=== PATIENT | female | born 1970 | race Asian ===

== ENCOUNTER 2016-11-18 19:04 | Emergency (ER) | payer OTHER ==
[2016-11-18] MEDS ORDERED: DEXAMETHASONE 10 MG/ML VIAL PO STA (20:23)
[2016-11-18] MEDS ORDERED: CHERRY SYRUP 10 ML UDC PO ONE (20:37)
[2016-11-18] MEDS ORDERED: DEXAMETHASONE 10 MG/ML VIAL ONE (20:38)
[2016-11-18] MEDS ORDERED: KETOROLAC 60 MG/2 ML VIAL IM STA (20:54)
[2016-11-18] MEDS ORDERED: KETOROLAC 60 MG/2 ML VIAL ONE (20:55)
[2016-11-18] MEDS ORDERED: HYDROcod/ACET 5/325 Prepack 6 PO ONE ×2 (21:25→21:33)
== END 2016-11-18 21:39 | disposition home or self-care (01) ==
DX: M94.0 Chondrocostal junction syndrome [Tietze] (principal); K21.9 Gastro-esophageal reflux disease without esophagitis; F17.200 Nicotine dependence, unspecified, uncomplicated
CPT/HCPCS: 36415; 71020; 80053; 83690; 84484; 85025; 93005; 93010; 96372; 99283; 99284; A9270

== ENCOUNTER 2017-11-07 08:04 | Emergency (ER) | payer OTHER ==
[2017-11-07] MEDS ORDERED: diphenhydrAMINE INJ 50 MG/ML VIAL IVP STA (08:23)
[2017-11-07] MEDS ORDERED: KETOROLAC 60 MG/2 ML VIAL IVP STA (08:23)
[2017-11-07] MEDS ORDERED: SODIUM CHLORIDE 0.9% 1,000 ML IV ONE (08:23)
[2017-11-07] MEDS ORDERED: PROCHLORPERAZINE INJ 10 MG in SODIUM CHLORIDE 0.9% 50 ML IV ONE (08:24)
--- NOTE | 2017-11-07 08:28 | ED Physician Documentation ---
PD HPI HEADACHE - Stated complaint Stated Complaint: DUKES/NAUSEA VOMITING - Chief complaint Chief Complaint: Neuro - History obtained from History obtained from: Patient - History of Present Illness Timing - onset: Yesterday Timing - details: Still present Worst headache ever?: Worst headache ever? (No.) Location: Global Quality: Aching Associated symptoms: Nausea, Vomiting. No: Fever, Stiff neck, Weakness, Numbness Improved by: Dark room Worsened by: Light Similar symptoms before: Diagnosis (Reports history of migraines.) - Treatment prior to arrival Treatment prior to arrival: Tylenol without relief. - Additional information Additional information: The patient is a 46-year-old female who presents with left-sided headache that started yesterday and continues this morning. She reports associated vomiting and photosensitivity. She denies fever, abdominal pain, numbness or weakness. She has used Tylenol without relief. She has history of similar symptoms in the past, which she describes as migraines. Her last episode was about 1 week ago. Normally her headaches are brought on by bright sunlight. She had a massage yesterday, and reports that her headache became worse after the massage. Review of Systems Constitutional: denies: Fever Eyes: reports: Photophobia Ears: denies: Tinnitus/ringing Nose: denies: Congestion Throat: denies: Sore throat Cardiac: denies: Chest pain / pressure Respiratory: denies: Dyspnea, Cough GI: reports: Nausea, Vomiting. denies: Abdominal Pain, Diarrhea : denies: Dysuria Skin: denies: Rash Musculoskeletal: denies: Neck pain, Back pain Neurologic: reports: Headache. 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 - Present Medications Home Medications: Ambulatory Orders Medication Instructions Recorded Confirmed raNITIdine HCl [Ranitidine HCl] 1 mg PO BID 01/09/16 11/18/16 HYDROcod/ACETAM 5/325 [[place] 5/325] 1 - 2 ea PO Q6H PRN #15 tablet 11/18/16 Promethazine [Phenergan] 25 - 50 mg PO Q6H PRN #10 tab 11/07/17 - Allergies Allergies/Adverse Reactions: Allergies Allergy/AdvReac Type Severity Reaction Status Date / Time No Known Drug Allergies Allergy Verified 01/09/16 21:07 - Social History Does the pt smoke?: Yes Smoking Status: Current every day smoker Does the pt drink ETOH?: Yes Does the pt have substance abuse?: No - Immunizations Immunizations are current?: Yes - POLST Patient has POLST: No PD ED PE NORMAL - Vitals Vital signs reviewed: Yes (Normal) - General General: Alert and oriented X 3, Well developed/nourished - HEENT HEENT: Atraumatic, PERRL, EOMI, Ears normal, Pharynx benign, Other (Fundi with sharp disc margins.) - Neck Neck: Supple, no meningeal sign, No adenopathy, No JVD - Cardiac Cardiac: RRR, No murmur - Respiratory Respiratory: No respiratory distress, Clear bilaterally - Abdomen Abdomen: Soft, Non tender - Back Back: No CVA TTP - Derm Derm: No rash - Extremities Extremities: No edema, No calf tenderness / cord - Neuro Neuro: Alert and oriented X 3, No motor deficit, No sensory deficit, Normal speech Results - Vitals Vitals: Vital Signs - 24 hr 11/07/17 10:22 Heart Rate 65 Respiratory 16 Rate Blood Pressure 99/64 O2 Saturation 100 Oxygen O2 Source Room air PD MEDICAL DECISION MAKING - ED course Complexity details: re-evaluated patient, considered differential, d/w patient, d/w family ED course: The patient's presentation is significant for headache which may be caused by a migraine, but is more likely associated with cervical muscle tension. There is no clinical evidence to suggest intracranial hemorrhage, temporal arteritis, meningitis, or pseudotumor cerebri. Treatment in the emergency department included administration of normal saline 1 L IV, Compazine 10 mg IV, Benadryl 25 mg IV, and ketorolac 30 mg IV. Her symptoms resolved with the above treatment. I discussed with her and her symptomatic treatment, outpatient follow-up, as well as potentially worrisome signs or symptoms that should prompt reevaluation in the emergency department. Departure - Departure Disposition: 01 Home, Self Care Clinical Impression: Headache Qualifiers: Headache type: unspecified Headache chronicity pattern: acute headache Intractability: not intractable Qualified Code(s): R51 - Headache Condition: Stable Instructions: ED Cephalgia Unspecified Follow-Up: WALTER Chan [Provider Group] Prescriptions: Promethazine [Phenergan] 25 - 50 mg PO Q6H PRN #10 tab PRN Reason: Nausea / Vomiting Comments: Drink plenty of fluids. You can use Tylenol or ibuprofen if needed for recurrent headache. You can use Phenergan as prescribed if needed for nausea. Follow up with your primary physician within 2 weeks. Call to schedule an appointment. Return to the emergency department if you develop increasing headache, persistent vomiting, or otherwise worsening symptoms. Forms: Activity restrictions Discharge Date/Time: 11/07/17 10:35
[2017-11-07 10:29] VITALS: BP 99/64
== END 2017-11-07 10:35 | disposition home or self-care (01) ==
LOC: ED 08:04
DX: R51 Headache (principal); R11.2 Nausea with vomiting, unspecified; K21.9 Gastro-esophageal reflux disease without esophagitis; F17.200 Nicotine dependence, unspecified, uncomplicated
CPT/HCPCS: 96365; 96375; 99283; 99284; J1200; J7040

== ENCOUNTER 2019-04-18 11:33 | Emergency (ER) | payer OTHER ==
--- NOTE | 2019-04-18 12:29 | ED Physician Documentation ---
PD HPI OPHTHO - Stated complaint Stated Complaint: LT EYE BLEEDING - Chief complaint Chief Complaint: Heent - History obtained from History obtained from: Patient - History of Present Illness Timing - onset: How many days ago (5) Timing - duration: Days (5) Timing - details: Abrupt onset (she has had some itching eyes and watery c/w allergies and has been rubbing eyes some. noted broken blood vessel 5 days ago and this was improving, then noted another one today. Says also has some occasional bright spots left eye. No loss of vision.) Location: Left Quality / character: Itching Associated symptoms: Redness, Tearing. No: Discharge, FB sensation Contributing factors: Other (has some runny nose and watery eyes c/w allergies.). No: Exposed to conjunctivitis, Recent URI, Wears contacts Similar symptoms before: Has not had sx before Review of Systems Constitutional: denies: Fever, Chills Eyes: reports: Irritation. denies: Loss of vision, Photophobia, Discharge Nose: reports: Rhinorrhea / runny nose. 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 - Present Medications Home Medications: Ambulatory Orders Medication Instructions Recorded Confirmed raNITIdine HCl [Ranitidine HCl] 1 mg PO BID 01/09/16 11/18/16 HYDROcod/ACETAM 5/325 [[place] 5/325] 1 - 2 ea PO Q6H PRN #15 tablet 11/18/16 Promethazine [Phenergan] 25 - 50 mg PO Q6H PRN #10 tab 11/07/17 ZOLMitriptan [Zolmitriptan] 5 mg PO ONCE PRN #10 tablet 04/18/19 dexAMETHasone [Decadron] 4 mg PO DAILY #5 tablet 04/18/19 - Allergies Allergies/Adverse Reactions: Allergies Allergy/AdvReac Type Severity Reaction Status Date / Time No Known Drug Allergies Allergy Verified 04/18/19 11:48 - Social History Does the pt smoke?: Yes Smoking Status: Current every day smoker Does the pt drink ETOH?: Yes Does the pt have substance abuse?: No - Immunizations Immunizations are current?: Yes - POLST Patient has POLST: No PD ED PE NORMAL - Vitals Vital signs reviewed: Yes - General General: Alert and oriented X 3, No acute distress, Well developed/nourished - HEENT HEENT: PERRL, EOMI, Other (small subconjunctival hemorrhage left eye at 11 oclock position and at 4 oclock area (appears resolving there). Mild redness of both lower conjunctivae. ) - Neck Neck: Supple, no meningeal sign, No adenopathy - Cardiac Cardiac: RRR, No murmur - Respiratory Respiratory: Clear bilaterally - Derm Derm: Normal color, Warm and dry PD ED PE EXPANDED - Eyes Eyes: Anterior chambers clear, Normal fundi Results - Vitals Vitals: Vital Signs - 24 hr 04/18/19 04/18/19 11:42 13:16 Temperature 37.0 C 36.4 C L Heart Rate 70 56 L Respiratory 17 12 Rate Blood Pressure 123/85 H 112/64 O2 Saturation 99 99 Oxygen O2 Source Room air Departure - Departure Disposition: 01 Home, Self Care Clinical Impression: Subconjunctival hemorrhage of left eye Allergic conjunctivitis Qualifiers: Laterality: bilateral Qualified Code(s): H10.13 - Acute atopic conjunctivitis, bilateral Condition: Stable Record reviewed to determine appropriate education?: Yes Instructions: ED Allergic Conjunctivitis Prescriptions: dexAMETHasone [Decadron] 4 mg PO DAILY #5 tablet ZOLMitriptan [Zolmitriptan] 5 mg PO ONCE PRN #10 tablet PRN Reason: Migraine Comments: I think the bleeding on the surface of the eye relates to some irritation of the blood vessels in the conjunctivo-from your allergies. Likely the irritation and then some rubbing of the eyes because the blood vessels to pop open. There is no signs of more serious problem on the back chamber or such. I would use your panthenol antihistamine eyedrops 3 times a day and cetirizine oral antihistamine daily both for a week. Add Decadron steroid daily for 5 days to reduce the allergy symptoms. The small hemorrhages should decrease. Continue your other usual medicines. Discharge Date/Time: 04/18/19 13:18
[2019-04-18] MEDS ORDERED: CETIRIZINE 10 MG TABLET PO STA (13:00)
[2019-04-18] MEDS ORDERED: DEXAMETHASONE 10 MG/ML VIAL PO STA (13:00)
[2019-04-18] MEDS ORDERED: CHERRY SYRUP 10 ML UDC PO ONE (13:00)
[2019-04-18] MEDS ORDERED: diphenhydrAMINE 25 MG CAPSULE PO STA (13:01)
[2019-04-18 13:18] VITALS: BP 112/64
== END 2019-04-18 13:18 | disposition home or self-care (01) ==
LOC: ED 11:33
DX: H11.32 Conjunctival hemorrhage, left eye (principal); H10.13 Acute atopic conjunctivitis, bilateral; F17.200 Nicotine dependence, unspecified, uncomplicated
CPT/HCPCS: 99282; 99284; A9270

== ENCOUNTER 2020-11-01 11:59 | Emergency (ER) | payer OTHER ==
[2020-11-01] MEDS ORDERED: DEXAMETHASONE 10 MG/ML VIAL PO STA (12:34)
[2020-11-01] MEDS ORDERED: KETOROLAC 60 MG/2 ML VIAL IM STA (12:34)
[2020-11-01] MEDS ORDERED: CHERRY SYRUP 10 ML UDC PO ONE (12:34)
--- NOTE | 2020-11-01 12:37 | ED Physician Documentation ---
History of Present Illness - Stated complaint Stated Complaint: BACK PX - Chief complaint Chief Complaint: Back Pain - Additonal information Additional information: 49-year-old female presents emergency department for evaluation of 3 to 4 days of low back pain. She reports that she was caring for 12 packs of soda at once and noticed that her back was mildly sore afterwards. She thought that she was okay but the next morning when she woke up her back was sore. She decided to stay home from work and rest in bed all day with Salonpas medicated patches as well as a warm compress. She feels that since then she has had increased low back pain worse with movement or bending. She denies any fevers flank pain dysuria urgency or frequency. No saddle anesthesia. No history of cancer or injection drug use. No history of spinal surgery or instrumentation. Reports a history of gastritis and cannot take NSAID medication Review of Systems Constitutional: denies: Fever, Chills Eyes: reports: Reviewed and negative Ears: reports: Loss of hearing Nose: reports: Reviewed and negative Throat: reports: Reviewed and negative Cardiac: reports: Reviewed and negative Respiratory: reports: Reviewed and negative GI: reports: Reviewed and negative : reports: Reviewed and negative Skin: denies: Rash, Lesions Musculoskeletal: reports: Back pain Neurologic: denies: Generalized weakness, Focal weakness, Near syncope, Seizure, Headache, Head injury, LOC PD PAST MEDICAL HISTORY - Past Medical History Past Medical History: Yes Cardiovascular: None Respiratory: None Neuro: None Endocrine/Autoimmune: None GI: 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: Other Psych: None Musculoskeletal: None Derm: None - Past Surgical History 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 - Present Medications Home Medications: Ambulatory Orders Medication Instructions Recorded Confirmed raNITIdine HCL [Ranitidine HCl] 1 mg PO BID 01/09/16 11/18/16 HYDROcod/ACETAM 5/325 [[place] 5/325] 1 - 2 ea PO Q6H PRN #15 tablet 11/18/16 Promethazine [Phenergan] 25 - 50 mg PO Q6H PRN #10 tab 11/07/17 ZOLMitriptan [Zolmitriptan] 5 mg PO ONCE PRN #10 tablet 04/18/19 dexAMETHasone [Decadron] 4 mg PO DAILY #5 tablet 04/18/19 Acetaminophen [Tylenol] 650 mg PO Q6H PRN #30 tab 11/01/20 Methocarbamol [Robaxin-750] 750 mg PO TID PRN #30 tablet 11/01/20 - Allergies Allergies/Adverse Reactions: Allergies Allergy/AdvReac Type Severity Reaction Status Date / Time No Known Drug Allergies Allergy Verified 11/01/20 12:11 - Social History Does the pt smoke?: Yes Smoking Status: Current every day smoker Does the pt drink ETOH?: Yes Does the pt have substance abuse?: No - Immunizations Immunizations are current?: Yes - POLST Patient has POLST: No PD ED PE EXPANDED - General General: Alert, No acute distress, Well developed/nourished - Neck Neck: Supple w/out meningeal sx. No: Adenopathy - Cardiac Cardiac: Regular Rate, Regular Rhythm, Radial strong equal, Cap refill < 2 sec. No: Murmur Present - Respiratory Respiratory: Clear to ausultation marv. No: Distress - Abdomen Abdomen: No: Tender to palpation - Back Back: Soft tissue tenderness, Limited ROM, Other (reduced forward flexion, un assited though antalgic gait. Bilateral paraspinous TTP. Able to walk on heels and toes equally). No: Vertebral tenderness, Straight leg raise + R, Straight leg raise + L, CVA TTP right, CVA TTP left - Extremities Extremities: Normal. No: Deformity, Tenderness, Pedal edema bilateral - Neuro Neuro: Alert and Oriented X 3, CNII-XII intact - GCS Eye Opening: Spontaneous Motor: Obeys Commands Verbal: Oriented Total: 15 Results - Vitals Vitals: Vital Signs - 24 hr 11/01/20 12:01 Temperature 36.8 C Heart Rate 69 Respiratory 17 Rate Blood Pressure 108/77 O2 Saturation 98 Oxygen O2 Source Room air PD MEDICAL DECISION MAKING - ED course Complexity details: considered differential, d/w patient ED course: This is a well-appearing 49-year-old female that presents emergency department with 3 to 4 days of low back pain after carrying very heavy cases of soda. Are no red flags on exam. No midline spinous process tenderness but there is tenderness along the bilateral lower lumbar paraspinous muscles. I suspect she has low back strain. Patient was given injection of Toradol here in the emergency department and will be given a one-time dose of Decadron. Will recommend a limited course of muscle relaxer for use at home as well as Tylenol. Patient is to follow-up with her primary care provider for reevaluation in the next 2 weeks. If not markedly improving may benefit from referral to physical therapy. Emergent return precautions discussed. Departure - Departure Disposition: 01 Home, Self Care Clinical Impression: Low back strain Qualifiers: Encounter type: initial encounter Qualified Code(s): S39.012A - Strain of muscle, fascia and tendon of lower back, initial encounter Condition: Stable Record reviewed to determine appropriate education?: Yes Instructions: ED Sprain Strain Lumbar Follow-Up: NISHANT ANGELES ARNP [Primary Care Provider] - Prescriptions: Methocarbamol [Robaxin-750] 750 mg PO TID PRN #30 tablet PRN Reason: Spasms Acetaminophen [Tylenol] 650 mg PO Q6H PRN #30 tab PRN Reason: Pain Comments: As we discussed I suspect that you sprained your low back carrying the heavy cases of soda. Today in the emergency department I have given you a one-time dose of an oral steroid that should help with pain and inflammation over the next 24 to 48 hours. Would like you to take the Tylenol with food 2-3 times a day as well as use the muscle relaxer sparingly. As we discussed light gentle stretching may help. Please schedule appoint with your fracture primary doctor for follow-up in the next 2 to 3 weeks. If symptoms not markedly improving you may benefit from referral to physical therapy or other evaluation.
[2020-11-01 13:30] VITALS: BP 114/51
== END 2020-11-01 13:07 | disposition home or self-care (01) ==
LOC: ED 11:59
DX: S39.012A Strain of muscle, fascia and tendon of lower back, initial encounter (principal); X50.0XXA Overexertion from strenuous movement or load, initial encounter; F17.200 Nicotine dependence, unspecified, uncomplicated
CPT/HCPCS: 96372; 99283; 99284; A9270

== ENCOUNTER 2021-03-30 09:02 | Outpatient (CLI) | payer OTHER | END 2021-03-30 09:03 | disposition critical access hospital (66) | LOC: EMS 09:02 | DX: R07.9 Chest pain, unspecified (principal); M25.512 Pain in left shoulder; M54.2 Cervicalgia; M54.9 Dorsalgia, unspecified; R06.4 Hyperventilation | CPT/HCPCS: A0425; A0427 ==

== ENCOUNTER 2021-03-30 09:29 | Emergency (ER) | payer OTHER ==
[2021-03-30] MEDS ORDERED: NITROGLYCERIN SL 0.4 MG TABLET SL ONE (09:48)
[2021-03-30] MEDS ORDERED: MORPHINE 2 MG/ML CARPUJECT IVP STA (10:07)
[2021-03-30] MEDS ORDERED: KETOROLAC 15 MG/ML VIAL IVP STA (10:08)
--- NOTE | 2021-03-30 10:09 | ED Physician Documentation ---
PD HPI CHEST PAIN - Stated complaint Stated Complaint: CP - Chief complaint Chief Complaint: Cardiac - History obtained from History obtained from: Patient, Family - History of Present Illness Timing - onset: Last night Timing - onset during: Rest Timing - duration: Hours (10) Timing - details: Abrupt onset, Still present, Waxing and waning Quality: Aching, Pain Location: Left chest (onset of left shoulder pain last evening and is in left pectoral chest this morning. Hurts with movement. Some pain with breathing.) Radiation: Left upper extremity (posterior shoulder.) Worsened by: Inspiration, Movement, Position (lifting arm up at shoulder). No: Exertion Associated symptoms: No: Shortness of air, Nausea, Vomiting, Cough Similar symptoms before: Has not had sx before Recently seen: Not recently seen Review of Systems Constitutional: denies: Fever, Chills Nose: denies: Rhinorrhea / runny nose, Congestion Throat: denies: Sore throat Cardiac: reports: Chest pain / pressure. denies: Palpitations, Pedal edema, Calf pain Respiratory: reports: Dyspnea. 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 - Present Medications Home Medications: Ambulatory Orders Medication Instructions Recorded Confirmed ZOLMitriptan [Zolmitriptan] 5 mg PO ONCE PRN #10 tablet 04/18/19 03/30/21 HYDROcod/ACETAM 5/325 [[place] 5/325] 1 ea PO Q6H PRN #12 tablet 03/30/21 Naproxen [Naprosyn] 500 mg PO BID #30 tablet 03/30/21 - Allergies Allergies/Adverse Reactions: Allergies Allergy/AdvReac Type Severity Reaction Status Date / Time No Known Drug Allergies Allergy Verified 03/30/21 10:00 - Social History Does the pt smoke?: Yes Smoking Status: Current every day smoker Does the pt drink ETOH?: Yes Does the pt have substance abuse?: No - Immunizations Immunizations are current?: Yes - POLST Patient has POLST: No PD ED PE NORMAL - Vitals Vital signs reviewed: Yes - General General: Alert and oriented X 3, No acute distress, Well developed/nourished - Neck Neck: Supple, no meningeal sign, No adenopathy - Cardiac Cardiac: RRR, No murmur - Respiratory Respiratory: Clear bilaterally, Other (some chestwall tenderness in left pectoral area. ) - Abdomen Abdomen: Soft, Non tender - Back Back: No CVA TTP - Derm Derm: Normal color, Warm and dry - Extremities Extremities: No edema, No calf tenderness / cord - Neuro Neuro: Alert and oriented X 3, No motor deficit, Normal speech Results - Vitals Vitals: Oxygen O2 Source Room air - EKG (time done) 09:32 Rate: Rate (enter#) (60) Rhythm: NSR [place]: Normal Intervals: Normal [place] QRS: Normal Ischemia: Normal ST segments. No: ST elevation c/w ischemia, ST depression - Labs Labs: Laboratory Tests 03/30/21 03/30/21 03/30/21 09:40 09:40 09:40 WBC 4.6 L RBC 4.94 Hgb 15.4 Hct 46.3 MCV 93.7 MCH 31.2 H MCHC 33.3 RDW 11.6 L Plt Count 247 MPV 9.3 Neut # (Auto) 1.9 Lymph # (Auto) 2.1 Ward # (Auto) 0.5 Eos # (Auto) 0.1 Baso # (Auto) 0.1 Absolute Nucleated RBC 0.00 Nucleated RBC % 0.0 D-Dimer Sodium 140 Potassium 4.0 Chloride 107 Carbon Dioxide 25 Anion Gap 8.0 BUN 11 Creatinine 0.9 Estimated GFR (MDRD) 66 L Glucose 105 H Calcium 8.9 Total Bilirubin 0.6 AST 36 ALT 49 Alkaline Phosphatase 47 Troponin I High Sens B-Natriuretic Peptide 23 Total Protein 7.4 Albumin 4.2 Globulin 3.2 Albumin/Globulin Ratio 1.3 Lipase 33 03/30/21 03/30/21 09:40 10:19 WBC RBC Hgb Hct MCV MCH MCHC RDW Plt Count MPV Neut # (Auto) Lymph # (Auto) Ward # (Auto) Eos # (Auto) Baso # (Auto) Absolute Nucleated RBC Nucleated RBC % D-Dimer 202.5 Sodium Potassium Chloride Carbon Dioxide Anion Gap BUN Creatinine Estimated GFR (MDRD) Glucose Calcium Total Bilirubin AST ALT Alkaline Phosphatase Troponin I High Sens 2.7 B-Natriuretic Peptide Total Protein Albumin Globulin Albumin/Globulin Ratio Lipase - Rads (name of study) chest xray Radiology: Prelim report reviewed (no acute process), See rad report PD MEDICAL DECISION MAKING - ED course Complexity details: considered differential, d/w patient Departure - Departure Disposition: 01 Home, Self Care Clinical Impression: Left-sided chest wall pain Condition: Stable Record reviewed to determine appropriate education?: Yes Instructions: ED Strain Chest Wall Prescriptions: Naproxen [Naprosyn] 500 mg PO BID #30 tablet HYDROcod/ACETAM 5/325 [[place] 5/325] 1 ea PO Q6H PRN #12 tablet PRN Reason: Pain Comments: Your chest x-ray, EKG, blood test do not show any more significant or serious cause for your chest pain. It seems musculoskeletal in nature. We will treat this with anti-inflammatories as directed. Add Tylenol every 4-6 hours if needed for pain or hydrocodone for worse pain short term. Follow-up with your primary care if not fully improved over the next several days to a week. Return if worsening or other symptoms develop. I am prescribing a short course of narcotic pain medication for you. These are potentially dangerous and addictive medications that should be used carefully. These medications may constipate you. Take an [id number] stool softener such as docusate twice daily with plenty of water while taking these medications. If you go 24 hours without a bowel movement, take [id number] MiraLAX, per package instructions. Do not drink or drive while taking these medications. If you received narcotic or sedating medications while in the emergency department do not drive for 24 hours. Store this medication in a safe, secure place and out of reach of children. It is a violation of federal law to give or sell this medication to another person or to use in a manner other than prescribed. The ED will not refill narcotic prescriptions, including prescriptions lost or stolen. You can dispose of unwanted medications at the [facility]'s office or at several pharmacies such as [facility]. Discharge Date/Time: 03/30/21 12:57
[2021-03-30 10:15] LABS: BASOPHILS # (AUTO) 0.1 10^3/uL (0.0-0.1); BASOPHILS % (AUTO) 1.5 %; EOSINOPHILS # (AUTO) 0.1 10^3/uL (0.0-0.7); EOSINOPHILS % (AUTO) 1.3 %; HCT - HEMATOCRIT 46.3 % (37.0-47.0); HGB - HEMOGLOBIN 15.4 g/dL (12.0-16.0); LYMPHOCYTES # (AUTO) 2.1 10^3/uL (1.5-3.5); LYMPHOCYTES % (AUTO) 45.1 %; MEAN CORPUSCULAR HEMOGLOBIN 31.2 pg (27.0-31.0); MEAN CORPUSCULAR HGB CONC 33.3 g/dL (32.0-36.0); MEAN CORPUSCULAR VOLUME 93.7 fL (81.0-99.0); MEAN PLATELET VOLUME 9.3 fL (7.9-10.8); MONOCYTES # (AUTO) 0.5 10^3/uL (0.0-1.0); NEUTROPHILS # (AUTO) 1.9 10^3/uL (1.5-6.6); NEUTROPHILS % (AUTO) 40.6 %; PLT - PLATELET COUNT 247 10^3/uL (130-450); RED BLOOD COUNT 4.94 10^6/uL (4.20-5.40); RED CELL DISTRIBUTION WIDTH 11.6 % (12.0-15.0); WHITE BLOOD COUNT 4.6 x10^3/uL (4.8-10.8)
[2021-03-30 10:36] LABS: ALBUMIN 4.2 g/dL (3.2-5.5); ALBUMIN/GLOBULIN RATIO 1.3 (1.0-2.2); BILIRUBIN,TOTAL 0.6 mg/dL (0.2-1.0); CALCIUM 8.9 mg/dL (8.5-10.3); CREATININE 0.9 mg/dL (0.4-1.0); TOTAL PROTEIN 7.4 g/dL (6.7-8.2)
--- NOTE | 2021-03-30 10:36 | XRAY Report ---
PROCEDURE: Chest 1 View X-Ray INDICATIONS: Chest Pain TECHNIQUE: One view of the chest was acquired. COMPARISON: Chest x-ray 11/18/2016 FINDINGS: Surgical changes and devices: None. Lungs and pleura: No pleural effusions or pneumothorax. Lungs are clear. Mediastinum: Mediastinal contours appear normal. Heart size is normal. Bones and chest wall: No suspicious bony lesions. Overlying soft tissues appear unremarkable. IMPRESSION: No acute pulmonary process. Reviewed by: Merlene Negrete MD on 03/30/2021 10:35 AM PDT Approved by: Merlene Negrete MD on 03/30/2021 10:35 AM PDT Station ID: [id number]
[2021-03-30 15:15] VITALS: BP 101/60
== END 2021-03-30 12:57 | disposition home or self-care (01) ==
LOC: EDUNIT# → ED 09:29
DX: R07.89 Other chest pain (principal); F17.200 Nicotine dependence, unspecified, uncomplicated
CPT/HCPCS: 36415; 71045; 80053; 83690; 83880; 84484; 85025; 85379; 93005; 96374; 96375; 99284; A9270

== ENCOUNTER 2023-09-30 09:59 | Emergency (ER) | payer OTHER ==
[2023-09-30 10:23] LABS: BASOPHILS # (AUTO) 0.1 10^3/uL (0.0-0.1); BASOPHILS % (AUTO) 0.9 %; EOSINOPHILS % (AUTO) 0.5 %; HCT - HEMATOCRIT 49.5 % (37.0-47.0); LYMPHOCYTES # (AUTO) 1.9 10^3/uL (1.5-3.5); LYMPHOCYTES % (AUTO) 34.9 %; MEAN CORPUSCULAR HEMOGLOBIN 30.3 pg (27.0-31.0); MEAN CORPUSCULAR HGB CONC 32.3 g/dL (32.0-36.0); MEAN CORPUSCULAR VOLUME 93.8 fL (81.0-99.0); MEAN PLATELET VOLUME 9.2 fL (7.9-10.8); MONOCYTES # (AUTO) 0.4 10^3/uL (0.0-1.0); MONOCYTES % (AUTO) 7.3 %; NEUTROPHILS # (AUTO) 3.1 10^3/uL (1.5-6.6); NEUTROPHILS % (AUTO) 55.7 %; PLT - PLATELET COUNT 244 10^3/uL (130-450); RED BLOOD COUNT 5.28 10^6/uL (4.20-5.40); RED CELL DISTRIBUTION WIDTH 11.4 % (12.0-15.0); WHITE BLOOD COUNT 5.5 x10^3/uL (4.8-10.8)
--- NOTE | 2023-09-30 10:35 | ED Physician Documentation ---
PD HPI CHEST PAIN - Stated complaint Stated Complaint: CHEST PX,SOA, LT SHOULDER/ARM PX,CHILLS - Chief complaint Chief Complaint: Cardiac - History obtained from History obtained from: Patient, Family - History of Present Illness Timing - onset: Yesterday Timing - onset during: Rest (just working at [employer] without strenuous activity.), Light activity. No: Exertion Timing - duration: Days (2) Timing - details: Gradual onset, Still present Quality: Aching, Sharp Location: Left chest (parasternal and pectoral area, with tenderness of chest to palpation and pain locally with movement of shoulder and deep breathing.) Radiation: Left upper extremity (anterior shoulder area.) Improved by: Rest Worsened by: Inspiration, Movement, Palpation Associated symptoms: Shortness of air. No: Nausea, Vomiting, Feeling faint / dizzy Similar symptoms before: Has not had sx before Review of Systems Constitutional: denies: Fever, Chills Nose: denies: Rhinorrhea / runny nose, Congestion Throat: denies: Sore throat Respiratory: denies: Cough GI: denies: Abdominal Pain, Nausea, Vomiting Skin: denies: Rash, Lesions Musculoskeletal: reports: Joint pain (she describes multiple large joints hurting variably over the past months variably without redness/swelling.). 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 RESOURCES ADMIN: None : None HEENT: Other Psych: None Musculoskeletal: None Derm: None - Past Surgical History Past Surgical History: Yes /HUMAN RESOURCES ADMIN: Other - Present Medications Home Medications: Ambulatory Orders Medication Instructions Recorded Confirmed ZOLMitriptan [Zolmitriptan] 5 mg PO ONCE PRN #10 tablet 04/18/19 09/30/23 Famotidine [Acid-Pep] 20 mg PO DAILY PRN 09/30/23 09/30/23 - Allergies Allergies/Adverse Reactions: Allergies Allergy/AdvReac Type Severity Reaction Status Date / Time No Known Drug Allergies Allergy Verified 09/30/23 10:06 - Social History Does the pt smoke?: Yes Smoking Status: Current every day smoker Does the pt drink ETOH?: Yes Does the pt have substance abuse?: No - Immunizations Immunizations are current?: Yes - POLST Patient has POLST: No PD ED PE NORMAL - Vitals Vital signs reviewed: Yes - General General: Alert and oriented X 3, No acute distress, Well developed/nourished - Neck Neck: Supple, no meningeal sign, No adenopathy - Cardiac Cardiac: RRR, No murmur - Respiratory Respiratory: No respiratory distress, Clear bilaterally, Other (definite chest wall tenderness left lateral parasternal area and medial pectoral without redness, sores, rash. Tender to anterior axillary area but not around toward the back. ) - Abdomen Abdomen: Soft, Non tender - Derm Derm: Normal color, Warm and dry - Extremities Extremities: Other (no redness, warmth, swelling of major joints. ) Results - Vitals Vitals: Oxygen O2 Source Room air - EKG (time done) 10:15 EKG releavant findings:: EKG personally interpreted by author of this note. Relevant findings are: Rate: Rate (enter#) (57) Rhythm: NSR [place]: Normal Intervals: Normal [place] QRS: Normal Ischemia: Normal ST segments. No: ST elevation c/w ischemia, ST elevation c/w repol - Labs Labs: Laboratory Tests 09/30/23 09/30/23 09/30/23 10:15 10:15 10:15 WBC 5.5 RBC 5.28 Hgb 16.0 Hct 49.5 H MCV 93.8 MCH 30.3 MCHC 32.3 RDW 11.4 L Plt Count 244 MPV 9.2 Neut # (Auto) 3.1 Lymph # (Auto) 1.9 Hale # (Auto) 0.4 Eos # (Auto) 0.0 Baso # (Auto) 0.1 Absolute Nucleated RBC 0.00 Nucleated RBC % 0.0 ESR 3 Sodium 139 Potassium 4.1 Chloride 106 Carbon Dioxide 26 Anion Gap 7.0 BUN 11 Creatinine 0.9 Estimated GFR (MDRD) 66 L Glucose 133 H Calcium 9.6 Total Bilirubin 0.4 AST 39 ALT 62 H Alkaline Phosphatase 85 Troponin I High Sens 12.0 Total Protein 7.9 Albumin 4.9 Globulin 3.0 Albumin/Globulin Ratio 1.6 Lipase 32 Rheumatoid Factor Double Strand DNA Ab 09/30/23 09/30/23 10:15 10:15 WBC RBC Hgb Hct MCV MCH MCHC RDW Plt Count MPV Neut # (Auto) Lymph # (Auto) Hale # (Auto) Eos # (Auto) Baso # (Auto) Absolute Nucleated RBC Nucleated RBC % ESR Sodium Potassium Chloride Carbon Dioxide Anion Gap BUN Creatinine Estimated GFR (MDRD) Glucose Calcium Total Bilirubin AST ALT Alkaline Phosphatase Troponin I High Sens Total Protein Albumin Globulin Albumin/Globulin Ratio Lipase Rheumatoid Factor NEGATIVE Double Strand DNA Ab <1 - Rads (name of study) chest xray Relevant Findings:: Prelim report reviewed, EMP independent interpretation of test PD Medical Decision Making - ED course Complexity details: reviewed results (Negative ECG, CXR and trop. No signs of acute cardiopulmonary cuase. describes multiple joint pains intermittently over past months. Eval with ESR and rheum tests for screening. Could be common cause autimmune with arthralgias and now costochondral pain. ), considered differential (chest pain with dyspnea. No URI symprtoms No exertioanl symptoms recent. No rash. no injury. Negative risk by PERC. Has distinct chestwall tenderness. ), d/w patient Departure - Departure Disposition: 01 Home, Self Care Clinical Impression: Chest pain, Acute chest wall pain, Polyarthralgia Condition: Stable Record reviewed to determine appropriate education?: Yes Instructions: ED Chest Pain Costochondritis Comments: Your EKG, chest x-ray, blood tests are normal without any signs of heart attack, heart failure, pneumonia, fluid in the lungs. You do have tenderness on the chest wall and hurting with movement and breathing so it sounds like musculoskeletal chest pain. Certainly avoid ibuprofen if that bothers your stomach etc. We did give a dose of some anti-inflammatory here and hopefully that will help decrease some of the symptoms. Continue with Tylenol 500 to 650 mg 4 times daily for pain over the next several days to week or so until this resolves. Follow-up with your primary care if not resolving well and improving well and resolved over the next 4 to 5 days. I did add some blood test that would look for some autoimmune type arthritis is since he describes some pains in your joints at times as well. Have your primary care follow-up on these test results. Otherwise continue usual medications. Watch for other symptoms to develop over the next couple of days such as fevers, coughing, flulike symptoms, skin rash or other abnormalities. If some of the symptoms develop, it may suggest another cause that was not yet evident. Forms: PCP List Discharge Date/Time: 09/30/23 12:07
[2023-09-30 10:44] LABS: ALBUMIN 4.9 g/dL (3.2-5.5); ALBUMIN/GLOBULIN RATIO 1.6 (1.0-2.2); BILIRUBIN,TOTAL 0.4 mg/dL (0.2-1.0); CALCIUM 9.6 mg/dL (8.5-10.3); CREATININE 0.9 mg/dL (0.6-1.3); POTASSIUM 4.1 mmol/L (3.5-4.5); TOTAL PROTEIN 7.9 g/dL (6.4-8.9)
--- NOTE | 2023-09-30 10:48 | XRAY Report ---
PROCEDURE: Chest 1V INDICATIONS: Chest pain TECHNIQUE: One view of the chest was acquired. COMPARISON: None. FINDINGS: Surgical changes and devices: None. Lungs and pleura: No pleural effusions or pneumothorax. Lungs are clear. Mediastinum: Mediastinal contours appear normal. Heart size is normal. Bones and chest wall: No suspicious bony lesions. Overlying soft tissues appear unremarkable. IMPRESSION: No acute cardiopulmonary process. Reviewed by: Karen Flannery MD on 09/30/2023 10:[address] [facility] Approved by: Karen Flannery MD on 09/30/2023 10:[address] [facility] Station ID: [id number]
[2023-09-30] MEDS: ACETAMINOPHEN 325 MG TABLET PO STA (11:19)
[2023-09-30] MEDS: DEXAMETHASONE 10 MG/ML VIAL IVP STA (11:19)
[2023-09-30] MEDS: KETOROLAC 15 MG/ML VIAL IVP STA (11:20)
[2023-09-30 12:13] VITALS: BP 112/74; O2SAT 100
[2023-09-30 13:28] LABS: RHEUMATOID FACTOR NEGATIVE (Negative)
== END 2023-09-30 12:07 | disposition home or self-care (01) ==
LOC: ED 09:59
DX: R07.89 Other chest pain (principal); M25.50 Pain in unspecified joint; F17.200 Nicotine dependence, unspecified, uncomplicated
CPT/HCPCS: 36415; 71045; 80053; 83690; 84484; 85025; 85651; 86225; 86430; 93005; 96374; 96375; 99284; A9270

== ENCOUNTER 2023-10-01 10:15 | Outpatient (CLI) | payer OTHER ==
--- NOTE | 2023-10-01 15:49 | XRAY Report ---
PROCEDURE: Shoulder 2+V LT INDICATIONS: LEFT SIDED SHOULDER PAIN TECHNIQUE: 3 views of the shoulder were acquired. COMPARISON: None. FINDINGS: Bones: No fractures or dislocations. No suspicious bony lesions. Visualized ribs appear intact. Minimal acromioclavicular degenerative narrowing. Soft tissues: No suspicious soft tissue calcifications. The visualized lungs are within normal limi ts. IMPRESSION: No acute bony abnormality. Reviewed by: Merlene Negrete MD on 10/01/2023 3:48 PM PST Approved by: Merlene Negrete MD on 10/01/2023 3:48 PM PST Station ID: [id number]
== END 2023-10-01 10:30 | disposition home or self-care (01) ==
LOC: DI.N 10:15
PROVIDERS: ATTEND Family Medicine
DX: M25.512 Pain in left shoulder (principal)

== ENCOUNTER 2023-11-12 08:00 | Outpatient (CLI) | payer OTHER ==
--- NOTE | 2023-11-12 15:56 | XRAY Report ---
PROCEDURE: Shoulder 1 View LT INDICATIONS: LEFT SHOULDER PAIN TECHNIQUE: 1 views of the shoulder were acquired. COMPARISON: X-ray shoulder 11/12/2023, 10/01/2023 FINDINGS: Bones: No fractures or dislocations. No suspicious bony lesions. Visualized ribs appear intact. Soft tissues: No suspicious soft tissue calcifications. The visualized lungs are within normal limi ts. IMPRESSION: Stable interval exam demonstrating no visualized fracture. No outlet narrowing. Reviewed by: Merlene Negrete MD on 11/12/2023 3:55 PM PDT Approved by: Merlene Negrete MD on 11/12/2023 3:55 PM PDT Station ID: [id number]
== END 2023-11-12 23:59 | disposition home or self-care (01) ==
LOC: DI.WOS 08:00
PROVIDERS: ATTEND Physician Assistant Surgical
DX: M25.512 Pain in left shoulder (principal)

== ENCOUNTER 2023-11-30 09:16 | Outpatient (CLI) | payer OTHER ==
[2023-11-30 18:56] LABS: ESTIMATED AVERAGE GLUCOSE 154 mg/dL (70-100)
[2023-11-30 19:14] LABS: THYROID STIMULATING HORMONE 0.66 uIU/mL (0.34-5.60)
[2023-11-30 19:17] LABS: ALBUMIN 4.2 g/dL (3.2-5.5); ALBUMIN/GLOBULIN RATIO 1.5 (1.0-2.2); ALKALINE PHOSPHATASE 73 IU/L (42-121); ALT ALANINE AMINOTRANSFERASE 64 IU/L (10-60); AST ASPARTATE AMINOTRANSFERASE 41 IU/L (10-42); BILIRUBIN,TOTAL 0.6 mg/dL (0.2-1.0); BUN - BLOOD UREA NITROGEN 11 mg/dL (6-20); CALCIUM 9.6 mg/dL (8.5-10.3); CARBON DIOXIDE - CO2 26 mmol/L (21-32); CHLORIDE 108 mmol/L (101-111); CHOL/HDL RATIO 3.2 (<4.4); CHOLESTEROL 184 mg/dL; CREATININE 0.9 mg/dL (0.6-1.3); GFR - MDRD 66 (>89); GLUCOSE 128 mg/dL (74-104); HDL CHOLESTEROL 57 mg/dL; LDL CHOLESTEROL,CALCULATED 94 mg/dL; LDL/HDL RATIO 1.6 (<4.4); POTASSIUM 4.5 mmol/L (3.5-4.5); SODIUM 139 mmol/L (135-145); TRIGLYCERIDES 163 mg/dL (48-352); VLDL CHOLESTEROL 33 mg/dL
== END 2023-11-30 09:17 | disposition home or self-care (01) ==
LOC: LAB.N 09:16
PROVIDERS: ATTEND Family Medicine
DX: K21.9 Gastro-esophageal reflux disease without esophagitis (principal); E66.3 Overweight; G43.009 Migraine without aura, not intractable, without status migrainosus
CPT/HCPCS: 36415; 80053; 80061; 83036; 83721; 84443

== ENCOUNTER 2024-05-03 07:56 | Emergency (ER) | payer OTHER ==
[2024-05-03 08:05] VITALS: BP 127/55; O2SAT 100
--- NOTE | 2024-05-03 08:10 | ED Physician Documentation ---
PD HPI UPPER EXT INJURY - Stated complaint Stated Complaint: LT FINGER LAC - Chief complaint Chief Complaint: Laceration - History obtained from History obtained from: Patient - History of Present Illness Location: Left, Finger (ring finger tip lac with sharp knife at home during food prep. Occurred last night and clenased/bandage. 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 : None HEENT: Other Psych: None Musculoskeletal: None Derm: None - Past Surgical History Past Surgical History: Yes /DRAFTER MARINE: Other - Present Medications Home Medications: Ambulatory Orders Medication Instructions Recorded Confirmed ZOLMitriptan [Zolmitriptan] 5 mg PO ONCE PRN #10 tablet 04/18/19 09/30/23 Famotidine [Acid-Pep] 20 mg PO DAILY PRN 09/30/23 09/30/23 - Allergies Allergies/Adverse Reactions: Allergies Allergy/AdvReac Type Severity Reaction Status Date / Time No Known Drug Allergies Allergy Verified 05/03/24 08:00 - Social History Does the pt smoke?: Yes Smoking Status: Current every day smoker Does the pt drink ETOH?: Yes Does the pt have substance abuse?: No - Immunizations Immunizations are current?: Yes - POLST Patient has POLST: No PD ED PE NORMAL - Vitals Vital signs reviewed: Yes - General General: Alert and oriented X 3, Well developed/nourished - Derm Derm: Normal color, Warm and dry - Extremities Extremities: Other (finger tip left ring finger with flap lac palmar to nailbed. It is still attached with about 90 degrees of the circumference. There is subcut tissue still on underside of flap with faint bleeding, about 1.5 cm diameter. Oozing blood from base of wound.) - Neuro Neuro: No motor deficit, No sensory deficit Results - Vitals Vitals: Oxygen O2 Source Room air Procedures - Laceration (location) left ring finger tip Length in cm: 1.5 Wound type: Flap, Into subcut fat, Clean Neurovascular status: Sensory intact, Motor intact Anesthesia: Lidocaine 1% Wound preparation: Wound explored, To the base Skin layer closure: Nylon, Interrupted, Size #-0 - enter number (4) Other: Patient tolerated well (painful injecting the lido.), No complications, Neurovascular intact, Dressing applied, Tetanus UTD PD Medical Decision Making - ED course Complexity details: considered differential (capillary/small skin vessel oozing bleeding from base. This can be improved with cautery and also direct pressure (such as suturing the flap).), d/w patient ED course: I talked with her about sutureing vs removal of flap. The center part does extend to sub cut tissue. There is small vessel bleeding. We could try suturing the flap down and has reasonable chance ofhealing. She is in agreement. Departure - Departure Disposition: 01 Home, Self Care Clinical Impression: Flap laceration of skin Condition: Stable Record reviewed to determine appropriate education?: Yes Instructions: ED Laceration Hand Follow-Up: Bernie Leigh MD [Primary Care Provider] - Comments: It is okay to wash and shower. Clean off the wound twice a day with soap and water, or peroxide and water. Apply some antibiotic ointment to it to keep it moist. Also to watch for signs of infection such as purulence, redness or increasing pain. Return to your primary care or the ER at the specified time for suture removal. Suture removal 8 to 10 days. Tylenol ibuprofen if needed for pains. Forms: PCP List Discharge Date/Time: 05/03/24 08:48
[2024-05-03] MEDS: LIDOCAINE 1% 2 ML VIAL SUBQ STA (08:21)
== END 2024-05-03 08:48 | disposition home or self-care (01) ==
LOC: ED 07:56
DX: S61.215A Laceration without foreign body of left ring finger without damage to nail, initial encounter (principal); W26.0XXA Contact with knife, initial encounter; Y93.G1 Activity, food preparation and clean up; F17.200 Nicotine dependence, unspecified, uncomplicated
CPT/HCPCS: 12001; 99283